=== PATIENT | female | born 1990 | race African-American/Black ===

== ENCOUNTER 2017-07-26 21:18 | Inpatient (IN) | payer MEDICAID, OTHER ==
[~2017-07-26] VITALS: Ht 162.6 cm; Wt 137.0 kg
[2017-07-26 22:53] LABS: CLARITY URINE CLEAR (CLEAR); COLOR URINE YELLOW (YELLOW); GLUCOSE URINE 3+ (NEGATIVE); KETONES URINE NEGATIVE (NEGATIVE); LEUKOCYTE ESTERASE URINE NEGATIVE (NEGATIVE); NITRITE URINE NEGATIVE (NEGATIVE); OCCULT BLOOD URINE NEGATIVE (NEGATIVE); PROTEIN URINE NEGATIVE (NEGATIVE); SPECIFIC GRAVITY URINE 1.034 (1.005-1.030); UROBILINOGEN URINE 0.2 E.U./dL (0.2-1.0)
[2017-07-26] MEDS ORDERED: TETANUS, DIPHTHERIA, PERTUSSIS VAC/PF 0.5ML (>7YR OLD) IM ONE (23:15)
[2017-07-27] MEDS ORDERED: SODIUM CHLORIDE 0.9% 1,000 ML IV ONE ×2 (00:06→02:37)
[2017-07-27 00:20] LABS: BASOPHILS % 0.6 % (0.0-2.0); EOSINOPHILS % 0.8 % (0.0-5.0); HEMATOCRIT. 38.4 % (36.0-48.0); LYMPHOCYTES % 15.5 % (20.0-50.0); MEAN CORPUSCULAR HEMOGLOBIN 21.2 pg (28.0-32.0); MEAN PLATELET VOLUME 10.5 fl (7.4-10.4); MONOCYTES % 6.1 % (2.0-8.0); PLATELET 296 x1000/uL (130-400); RED BLOOD CELL COUNT 5.65 mill/uL (4.2-5.4); RED CELL DISTRIBUTION WIDTH 16.5 % (11.6-14.6)
[2017-07-27 00:25] LABS: CHLORIDE 95 mEq/L (98-107)
[2017-07-27 00:27] LABS: PLATELET ESTIMATE NORMAL
[2017-07-27 00:34] LABS: CARBON DIOXIDE 29 mEq/L (21-32)
[2017-07-27] MEDS ORDERED: INSULIN REGULAR (HUMULIN R) UD 100 UNITS/ML SYR SUBCUT ONE (01:00)
[2017-07-27] MEDS ORDERED: INSULIN REGULAR (HUMULIN R) 300UNITS/3ML SUBCUT NR (01:30)
[2017-07-27] MEDS ORDERED: INSULIN REGULAR (HUMULIN R) 300UNITS/3ML SUBCUT ONE (02:45)
[2017-07-27] MEDS ORDERED: DEXTROSE 50% WATER 50ML SYRINGE IV PRN (09:00)
[2017-07-27 09:12] VITALS: BP 108/68
[2017-07-27] MEDS: ENOXAPARIN 40MG/0.4ML SYR SUBCUT SCH ×2 (10:22→21:41)
[2017-07-27 10:35] LABS: CARBON DIOXIDE 26 mEq/L (21-32); CHLORIDE 104 mEq/L (98-107); HDL CHOLESTEROL 31 mg/dL (40-59); LDL CHOLESTEROL 50 mg/dL (5-100)
[2017-07-27] MEDS ORDERED: INSULIN DETEMIR UD 100 UNITS/ML SYR SUBCUT SCH (11:00)
[2017-07-27] MEDS: BLOOD SUGAR DIAGNOSTIC STRIP TEST SCH ×3 (11:28→20:28)
[2017-07-27 11:45] VITALS: BP 108/88
[2017-07-27] MEDS: SODIUM CHLORIDE 0.9% 1,000 ML IV SCH ×2 (12:01→21:40)
[2017-07-27] MEDS: INSULIN LISPRO 100 UNITS/ML SUBCUT SCH ×3 (12:02→21:46)
[2017-07-27 16:00] VITALS: BP 114/76
[2017-07-27 20:00] VITALS: BP 109/73
[2017-07-27] MEDS: INSULIN DETEMIR UD 100 UNITS/ML SYR SUBCUT SCH (21:46)
[2017-07-28] VITALS: BP 119/76
[2017-07-28 04:13] VITALS: BP 130/78
[2017-07-28 06:16] LABS: BASOPHILS % 0.3 % (0.0-2.0); HEMATOCRIT. 36.5 % (36.0-48.0); HEMOGLOBIN. 11.3 g/dL (12.0-16.0); LYMPHOCYTES % 18.8 % (20.0-50.0); MEAN CORPUSCULAR HEMOGLOBIN 20.8 pg (28.0-32.0); MEAN CORPUSCULAR VOLUME 67.1 fL (81.0-99.0); MEAN PLATELET VOLUME 10.7 fl (7.4-10.4); MONOCYTES % 6.1 % (2.0-8.0); NEUTROPHILS % 72.8 % (40.0-76.0); PLATELET 261 x1000/uL (130-400); RED BLOOD CELL COUNT 5.44 mill/uL (4.2-5.4); RED CELL DISTRIBUTION WIDTH 16.3 % (11.6-14.6)
[2017-07-28] MEDS: BLOOD SUGAR DIAGNOSTIC STRIP TEST SCH (06:18)
[2017-07-28] MEDS: SODIUM CHLORIDE 0.9% 1,000 ML IV SCH (06:51)
[2017-07-28] MEDS: INSULIN LISPRO 100 UNITS/ML SUBCUT SCH (06:55)
[2017-07-28 07:55] LABS: CARBON DIOXIDE 25 mEq/L (21-32); CHLORIDE 105 mEq/L (98-107)
[2017-07-28 08:00] VITALS: BP 124/89
[2017-07-28] MEDS: ENOXAPARIN 40MG/0.4ML SYR SUBCUT SCH (09:04)
[2017-07-28] MEDS: INSULIN DETEMIR UD 100 UNITS/ML SYR SUBCUT SCH (09:05)
[2017-07-28 11:19] VITALS: BP 124/89
== END 2017-07-28 12:15 | disposition home or self-care (01) | DRG 420 ==
LOC: ER 21:18 → 8WST 07-27 04:44 → ENRESERV 07-27 06:56
PROVIDERS: ADMIT Internal Medicine; ATTEND Internal Medicine
DX: E11.65 Type 2 diabetes mellitus with hyperglycemia (principal); E87.8 Other disorders of electrolyte and fluid balance, not elsewhere classified; E87.1 Hypo-osmolality and hyponatremia; D72.829 Elevated white blood cell count, unspecified
CPT/HCPCS: 36415; 71010; 80048; 80053; 80061; 81001; 81025; 82962; 83036; 84443; 85025; 93005; 93970; 99285; J1650; J1815; J7030